=== PATIENT | female | born 1945 | race Caucasian/White ===

== ENCOUNTER 2022-02-22 17:36 | Emergency (ER) | payer MEDICARE, BC, SELFPAY ==
[2022-02-22] VITALS (21 sets, daily range): BP systolic 115–153; BP diastolic 66–95; PULSE 75–113; RESP 20; TEMP 36.3; O2SAT 94–99; BMI 29.1
--- NOTE | 2022-02-22 18:02 | ED_ITS ---
HPI - General Adult General Time Seen by Provider: 18:03 Date Seen: 02/22/22 Chief complaint: Arrhythmia/Palpitations Stated complaint: Afib Time Seen by Provider: 02/22/22 17:54 Source: patient Mode of arrival: ambulatory Limitations: no limitations History of Present Illness HPI narrative: Patient is a pleasant 76-year-old female has chronic atrial fibrillation but it sounds like occasionally she is in sinus rhythm as well, she has had AFib for last couple of days, saw medical advisor yesterday she was switched from atenolol to metoprolol orally. She was given the option for cardioversion with anticoagulation and she declined this. She has been on Eliquis for a good period of time. She tends to get a warm feeling in her chest when she has AFib and she had this today now she feels actually a little better. Her heart rates in the 120 range with frequent PVCs occasionally occasionally alternating normal beat with a PVC. Patient really denies any chest pain nausea vomiting diaphoresis she has been taking good p.o. intake, she saw the medical advisor yesterday as mention. She reports she has been taking her Eliquis regularly Past history history of osteoarthritis right knee, supraventricular tachycardia/AFib, diverticulitis, community-acquired pneumonia. She has also been anticoagulated as mention. Related Data Home Medications Medication Instructions Recorded Confirmed acetaminophen 650 mg 650 mg PO 01/09/22 01/09/22 tablet,extended release albuterol sulfate 2.5 mg/3 mL 2.5 mg inhalation 01/09/22 01/09/22 (0.083 %) solution for nebulization albuterol sulfate 90 mcg/actuation 2 inhalation 01/09/22 01/09/22 aerosol inhaler amlodipine 5 mg tablet 5 mg PO QDAY 01/09/22 01/09/22 apixaban 5 mg tablet 5 mg PO BID 01/09/22 01/09/22 atenolol 50 mg tablet 50 mg PO DAILY 01/09/22 01/09/22 benzonatate 100 mg capsule 100 mg PO 01/09/22 01/09/22 ciprofloxacin HCl 500 mg tablet 500 mg PO 01/09/22 01/09/22 codeine 10 mg-guaifenesin 100 mg/5 5 ml PO 01/09/22 01/09/22 mL oral liquid diltiazem HCl 60 mg mg PO BID 01/09/22 01/09/22 capsule,extended release 12 hr furosemide 40 mg tablet 40 mg PO Q OTHER DAY 01/09/22 01/09/22 levothyroxine 50 mcg capsule 50 mcg PO QDAY 01/09/22 01/09/22 lorazepam 0.5 mg tablet 0.5 mg PO QDAY PRN 01/09/22 01/09/22 losartan 100 mg tablet 100 mg PO DAILY 01/09/22 01/09/22 metronidazole 500 mg tablet 500 mg PO 01/09/22 01/09/22 nitroglycerin 0.4 mg sublingual 0.4 mg sublingual Q5M PRN 01/09/22 01/09/22 tablet omega-3 fatty acids 500 mg capsule 500 mg PO QDAY 01/09/22 01/09/22 rosuvastatin 20 mg tablet 20 mg PO QDAY 01/09/22 01/09/22 sertraline 100 mg tablet 100 mg PO DAILY 01/09/22 01/09/22 valacyclovir 500 mg tablet 500 mg PO BID 01/09/22 01/09/22 Allergies Allergy/AdvReac Type Severity Reaction Status Date / Time penicillin V Allergy Mild Rash Verified 01/11/22 11:17 LOTION AND FRAGRANCES AdvReac Mild Uncoded 01/11/22 11:17 Review of Systems Status of ROS: Reports: 10 or more systems reviewed and unremarkable except as noted in History and below [facility] Medical History Anemia Arthritis Coronary artery disease Gastric ulcer Heart attack Hyperlipidemia Hypertension Hypothyroid Surgical History H/O heart artery stent H/O: hysterectomy History of breast biopsy History of left knee replacement (06/10/13) Status post breast reduction Family History Other High blood pressure Stomach cancer Social History Smoking Status: Former smoker Non-prescribed substance use: denies use Exam Narrative: Exam Narrative: Objective vital signs unremarkable, pulse is 1 13-125 and irregularly regular Alert orient x3 no distress no cyanosis Neck is supple Chest clear Heart irregular regular rhythm a 2/6 systolic murmur Abdomen benign soft obese nontender extremities are no edema neurologic nonfocal good peripheral perfusion noted Skin warm and dry Const: Vital Signs, click to edit/add: Vital Signs - 24 hr 02/22/22 17:42 02/22/22 17:59 02/22/22 18:20 Temperature 97.3 F L Pulse Rate 110 H Pulse Rate [Right Pulse Oximeter] 113 H Respiratory Rate 20 Blood Pressure Blood Pressure [Ri ght Upper Arm] 147/94 H Pulse Oximetry 99 96 96 Oxygen Delivery Me thod Room Air 02/22/22 18:23 02/22/22 18:25 02/22/22 18:27 Temperature Pulse Rate 109 H 112 H 93 Pulse Rate [Right Pulse Oximeter] Respiratory Rate Blood Pressure 151/78 H 153/79 H Blood Pressure [Ri ght Upper Arm] Pulse Oximetry 96 96 96 Oxygen Delivery Me thod 02/22/22 18:30 02/22/22 18:32 02/22/22 18:35 Temperature Pulse Rate 101 H 93 85 Pulse Rate [Right Pulse Oximeter] Respiratory Rate Blood Pressure 115/95 H Blood Pressure [Ri ght Upper Arm] Pulse Oximetry 97 95 96 Oxygen Delivery Me thod 02/22/22 18:41 02/22/22 18:43 02/22/22 18:45 Temperature Pulse Rate 93 75 91 Pulse Rate [Right Pulse Oximeter] Respiratory Rate Blood Pressure 118/66 Blood Pressure [Ri ght Upper Arm] Pulse Oximetry 97 95 97 Oxygen Delivery Me thod 02/22/22 18:49 02/22/22 18:50 02/22/22 18:52 Temperature Pulse Rate 99 92 104 H Pulse Rate [Right Pulse Oximeter] Respiratory Rate Blood Pressure 144/71 H 136/79 Blood Pressure [Ri ght Upper Arm] Pulse Oximetry 97 98 96 Oxygen Delivery Me thod 02/22/22 18:55 02/22/22 18:57 02/22/22 19:00 Temperature Pulse Rate 96 89 108 H Pulse Rate [Right Pulse Oximeter] Respiratory Rate Blood Pressure 137/91 H Blood Pressure [Ri ght Upper Arm] Pulse Oximetry 97 97 96 Oxygen Delivery Me thod 02/22/22 19:02 02/22/22 19:05 02/22/22 19:10 Temperature Pulse Rate 87 98 106 H Pulse Rate [Right Pulse Oximeter] Respiratory Rate Blood Pressure 153/83 H Blood Pressure [Ri ght Upper Arm] Pulse Oximetry 96 96 94 Oxygen Delivery Me thod Course Vital Signs Vital signs: Initial Vital Signs Temperature 97.3 F L 02/22/22 17:42 Temperature Source Temporal Artery Scan 02/22/22 17:42 Pulse Rate 113 H 02/22/22 17:42 Respiratory Rate 20 02/22/22 17:42 Blood Pressure 147/94 H 02/22/22 17:42 Blood Pressure Mean 111 02/22/22 17:42 Blood Pressure Position Sitting 02/22/22 17:42 Pulse Oximetry 99 02/22/22 17:42 Oxygen Delivery Method 02/22/22 17:42 Vital Signs Temperature 97.3 F L 02/22/22 17:42 Pulse Rate 113 H 02/22/22 17:42 Respiratory Rate 20 02/22/22 17:42 Blood Pressure 147/94 H 02/22/22 17:42 Pulse Oximetry 99 02/22/22 17:42 Oxygen Delivery Method 02/22/22 17:42 Temperature 97.3 F L 02/22/22 17:42 Pulse Rate 106 H 02/22/22 19:10 Respiratory Rate 20 02/22/22 17:42 Blood Pressure 153/83 H 02/22/22 19:02 Pulse Oximetry 94 02/22/22 19:10 Oxygen Delivery Method 02/22/22 17:42 Medical Decision Making MDM Narrative Medical decision making narrative: Patient has AFib that sounds like it has been chronic for few days, she intermittently has AFib by her history. She received a switch from atenolol to metoprolol certain there could be some ramping up of her beta-blockade while she gets used to the medication. They could be reasonable to add a low dose of Lopressor IV now and trying slower rate a little bit. Only to make her feel better, check a troponin, laboratory studies, electrolytes, rehydrate with fluid. Disposition pending her clinical status and lab results Addendum: The patient's EKG shows a rate of 127 initially, now on her telemetry reading she is in the 100-110 range. She got 2 doses of Lopressor which seemed to slow her rate. I wonder if there is an some crossover between the atenolol switch to the metoprolol and she is just not adequately beta blocked yet, it seems better at this point. I think given she is anticoagulated she has got rate control on board and she is not significantly symptomatic and she has a negative troponin and reassuring lab studies including a normal white blood cell count, normal hemoglobin potassium was slightly low at 3.1 and she was given replacement. I think we can allow her to go home her proBNP was slightly elevated at 938. Recheck with primary care in 2 days, keep track of her heart rate, she is seems much less symptomatic now and again lower to go home and continue the beta blockade and the anticoagulation. Return as needed Lab Data Labs: Lab Results 02/22/22 02/22/22 02/22/22 Range/Units 18:10 18:10 18:10 WBC 10.62 (4.50-11.00) K/uL RBC 4.26 (4.00-5.20) m/uL Hgb 12.1 (12.0-16.0) gm/dL Hct 37.3 (33.0-51.0) % MCV 88 (80-100) fL MCH 28 (26-34) pg MCHC 32 (32-36) gm/dL RDW Coeff of [place] 13.5 (11.5-15.5) % Plt Count 532 H (140-440) K/uL Neut % (Auto) 64.3 (42.0-72.0) % Lymph % (Auto) 26.2 (20-44) % [place] % (Auto) 6.5 (0.0-11.0) % Eos % (Auto) 2.1 (0.0-7.0) % Baso % (Auto) 0.8 (0.0-3.0) % Neut # (Auto) 6.83 (1.7-7.0) K/uL Lymph # (Auto) 2.78 (0.90-2.90) K/uL Duval # (Auto) 0.70 (0.00-0.90) K/UL Eos # (Auto) 0.22 (0.00-0.50) K/uL Baso # (Auto) 0.09 (0.00-0.30) K/uL Abs Immat Gran (auto) 0.01 (0.00-0.30) K/uL INR 1.16 H (0.91-1.10) Sodium 139 (135-149) mmol/L Potassium 3.1 L (3.6-5.1) mmol/L Chloride 101 (96-114) mmol/L Carbon Dioxide 25 (20-32) mmol/L BUN 12 (7-30) mg/dL Creatinine 0.8 (0.5-1.5) mg/dL Estimated Creat Clear 42.39 Estimated GFR 76 ml/min Glucose 175 H (60-115) mg/dL Calcium 9.4 (8.4-10.6) mg/dL Total Bilirubin (0.1-1.5) mg/dL Direct Bilirubin (0.0-0.5) mg/dL AST (12-35) U/L ALT (4-35) U/L Alkaline Phosphatase (40-150) U/L Troponin I (0.01-0.04) ng/mL NT-Pro-B Natriuret Pep (0-450) PG/mL Total Protein (6.0-8.3) g/dL Albumin (3.3-5.0) g/dL 02/22/22 Range/Units 18:10 WBC (4.50-11.00) K/uL RBC (4.00-5.20) m/uL Hgb (12.0-16.0) gm/dL Hct (33.0-51.0) % MCV (80-100) fL MCH (26-34) pg MCHC (32-36) gm/dL RDW Coeff of [place] (11.5-15.5) % Plt Count (140-440) K/uL Neut % (Auto) (42.0-72.0) % Lymph % (Auto) (20-44) % Duval % (Auto) (0.0-11.0) % Eos % (Auto) (0.0-7.0) % Baso % (Auto) (0.0-3.0) % Neut # (Auto) (1.7-7.0) K/uL Lymph # (Auto) (0.90-2.90) K/uL [place]val # (Auto) (0.00-0.90) K/UL Eos # (Auto) (0.00-0.50) K/uL Baso # (Auto) (0.00-0.30) K/uL Abs Immat Gran (auto) (0.00-0.30) K/uL INR (0.91-1.10) Sodium (135-149) mmol/L Potassium (3.6-5.1) mmol/L Chloride (96-114) mmol/L Carbon Dioxide (20-32) mmol/L BUN (7-30) mg/dL Creatinine (0.5-1.5) mg/dL Estimated Creat Clear Estimated GFR ml/min Glucose (60-115) mg/dL Calcium (8.4-10.6) mg/dL Total Bilirubin 0.3 (0.1-1.5) mg/dL Direct Bilirubin 0.1 (0.0-0.5) mg/dL AST 27 (12-35) U/L ALT 19 (4-35) U/L Alkaline Phosphatase 91 (40-150) U/L Troponin I < 0.01 L (0.01-0.04) ng/mL NT-Pro-B Natriuret Pep 938 H (0-450) PG/mL Total Protein 8.0 (6.0-8.3) g/dL Albumin 4.7 (3.3-5.0) g/dL Discharge Plan Discharge Clinical Impression: Atrial fibrillation with rapid ventricular response Patient Disposition: Home w/ Parent or Adult Condition: Improved Additional Instructions: light activity, fluids, continue home meds, update primary in 1-2 days, return to ed as needed sooner Activity Level: No strenuous activity Discharge Diet: Regular Prescriptions: No Action apixaban 5 mg tablet 5 mg PO BID atenolol 50 mg tablet 50 mg PO DAILY losartan 100 mg tablet 100 mg PO DAILY albuterol sulfate 90 mcg/actuation HFA aerosol inhaler 2 inhalation diltiazem HCl 60 mg capsule,extended release 12 hr PO BID codeine-guaifenesin 10-100 mg/5 mL liquid 5 ml PO benzonatate 100 mg capsule 100 mg PO acetaminophen 650 mg tablet extended release 650 mg PO ciprofloxacin HCl 500 mg tablet 500 mg PO metronidazole 500 mg tablet 500 mg PO sertraline 100 mg tablet 100 mg PO DAILY albuterol sulfate 2.5 mg /3 mL (0.083 %) solution for nebulization 2.5 mg inhalation valacyclovir 500 mg tablet 500 mg PO BID rosuvastatin 20 mg tablet 20 mg PO QDAY omega-3 fatty acids 500 mg capsule 500 mg PO QDAY nitroglycerin 0.4 mg tablet, sublingual 0.4 mg sublingual Q5M PRN Rx Instructions: do not exceed 3 doses per episode lorazepam 0.5 mg tablet 0.5 mg PO QDAY PRN levothyroxine 50 mcg capsule 50 mcg PO QDAY furosemide 40 mg tablet 40 mg PO Q OTHER DAY amlodipine 5 mg tablet 5 mg PO QDAY Follow Up/Referrals: Savana Booker MD [Primary Care Provider] - Stand Alone Forms: [employer] Info Instructions
[2022-02-22 18:17] LABS: Basophils Absolute Auto 0.09 K/uL (0.00-0.30); Basophils Percent Auto 0.8 % (0.0-3.0); Eosinophils Absolute Auto 0.22 K/uL (0.00-0.50); Eosinophils Percent Auto 2.1 % (0.0-7.0); Hematocrit 37.3 % (33.0-51.0); Hemoglobin* 12.1 gm/dL (12.0-16.0); Immature Granulocytes Abs Auto 0.01 K/uL (0.00-0.30); Lymphocytes Absolute Auto 2.78 K/uL (0.90-2.90); Lymphocytes Percent Auto 26.2 % (20-44); Mean Corpuscular HGB Conc 32 gm/dL (32-36); Mean Corpuscular Hemoglobin 28 pg (26-34); Mean Corpuscular Volume 88 fL (80-100); Monocytes Percent Auto 6.5 % (0.0-11.0); Neutrophils Absolute Auto 6.83 K/uL (1.7-7.0); Neutrophils Percent Auto 64.3 % (42.0-72.0); Platelet Count* 532 K/uL (140-440); RDW Coefficient of Variation % 13.5 % (11.5-15.5); Red Blood Count 4.26 m/uL (4.00-5.20); White Blood Count* 10.62 K/uL (4.50-11.00)
[2022-02-22] MEDS: METOPROLOL TARTRATE 1 MG/ML inj 5 MG IVP (18:24)
[2022-02-22] MEDS: 0.9 % SODIUM CHLORIDE 500 ML 500 ML IV (18:24)
[2022-02-22 18:31] LABS: Chloride* 101 mmol/L (96-114); Potassium* 3.1 mmol/L (3.6-5.1); Sodium* 139 mmol/L (135-149)
[2022-02-22 18:32] LABS: Albumin* 4.7 g/dL (3.3-5.0)
[2022-02-22 18:33] LABS: INR 1.16 (0.91-1.10); Prothrombin Time 15.2 Seconds
[2022-02-22 18:34] LABS: Blood Urea Nitrogen* 12 mg/dL (7-30); Calcium* 9.4 mg/dL (8.4-10.6); Carbon Dioxide* 25 mmol/L (20-32); Creatinine* 0.8 mg/dL (0.5-1.5); Est. Creatinine Clearance* 42.39; Estimated Glomerular Filt Rate 76 ml/min; Glucose* 175 mg/dL (60-115); Slide Review Reflex No
[2022-02-22 18:35] LABS: Alanine Aminotransferase* 19 U/L (4-35); Alkaline Phosphatase* 91 U/L (40-150); Aspartate Amino Transferase* 27 U/L (12-35); Bilirubin Direct* 0.1 mg/dL (0.0-0.5); Bilirubin Total* 0.3 mg/dL (0.1-1.5)
[2022-02-22 18:43] LABS: NT Pro B Type NatriureticPept* 938 PG/mL (0-450)
[2022-02-22] MEDS: METOPROLOL TARTRATE 1 MG/ML inj 2.5 MG IVP (18:45)
[2022-02-22 18:47] LABS: Troponin I* < 0.01 ng/mL (0.01-0.04)
== END 2022-02-22 19:28 | disposition home or self-care (01) ==
LOC: ED 18:50
PROVIDERS: Emergency Provider Family Medicine; PCP Family Medicine
DX: I48.20 Chronic atrial fibrillation, unspecified (principal)
CPT/HCPCS: 36415; 80048; 80076; 83880; 84484; 85025; 85610; 93005; 94761; 99284; 99285; J7120

== ENCOUNTER 2022-09-14 11:23 | Emergency (ER) | payer MEDICARE, BC, SELFPAY ==
[2022-09-14 11:29] VITALS: BP 172/84; PULSE 86; RESP 20; TEMP 36.2; O2SAT 99; BMI 29.1
--- NOTE | 2022-09-14 11:42 | ED.BACK ---
HPI - Back Pain/Injury General Time Seen by Provider: 11:42 Date Seen: 09/14/22 Chief Complaint: Back Injury/Pain Stated Complaint: Back pain Time Seen by Provider: 09/14/22 11:42 Source: patient, RN notes reviewed and old records reviewed Mode of arrival: ambulatory Limitations: no limitations History of Present Illness HPI Narrative: Veena is a very pleasant 77-year-old female with a history of PA 20 years ago, atrial fibrillation currently on Eliquis who comes to the emergency room for evaluation regarding possible diverticulitis. Patient states that for 1 week she has had a pain in her right low back. She states that she and her had been on vacation in the [facility]. She notes that her low back was hurting and she thought it was from flying. She states the morning discomfort is definitely worse and sometimes there is a gripping sensation. She notes that Tylenol did seem to help the pain but would not completely resolve it. Over the past week however the pain has persisted and is rather dull in nature and she has had decrease of energy. She notes that this is completely consistent with diverticulitis that she experienced few years ago. It is also in the same spot. She has is feeling that she cannot completely empty her bowels but denies any diarrhea or blood in her stool. She does occasionally have radiation into her leg but she thought this was most likely pain radiating from her knee. She has not had any bowel or bladder control issues. She has not had fever and chills and she has been able to eat. Related Data Home Medications Medication Instructions Recorded Confirmed acetaminophen 650 mg 650 mg PO Q12H PRN 01/09/22 09/14/22 tablet,extended release albuterol sulfate 2.5 mg/3 mL 2.5 mg inhalation Q4H PRN 01/09/22 09/14/22 (0.083 %) solution for nebulization albuterol sulfate 90 mcg/actuation 2 inhalation Q4H PRN 01/09/22 06/19/22 aerosol inhaler amlodipine 5 mg tablet 5 mg PO QDAY 01/09/22 09/14/22 apixaban 5 mg tablet 5 mg PO BID 01/09/22 09/14/22 benzonatate 100 mg capsule 100 mg PO 01/09/22 06/19/22 ciprofloxacin HCl 500 mg tablet 500 mg PO 01/09/22 06/19/22 codeine 10 mg-guaifenesin 100 mg/5 5 ml PO 01/09/22 06/19/22 mL oral liquid furosemide 40 mg tablet 40 mg PO Q OTHER DAY 01/09/22 09/14/22 levothyroxine 50 mcg capsule 50 mcg PO QDAY 01/09/22 09/14/22 lorazepam 0.5 mg tablet 0.5 mg PO QDAY PRN 01/09/22 09/14/22 losartan 100 mg tablet 100 mg PO DAILY 01/09/22 09/14/22 metronidazole 500 mg tablet 500 mg PO 01/09/22 06/19/22 nitroglycerin 0.4 mg sublingual 0.4 mg sublingual Q5M PRN 01/09/22 09/14/22 tablet omega-3 fatty acids 500 mg capsule 500 mg PO QDAY 01/09/22 09/14/22 rosuvastatin 20 mg tablet 20 mg PO QDAY 01/09/22 09/14/22 sertraline 100 mg tablet 100 mg PO DAILY 01/09/22 09/14/22 valacyclovir 500 mg tablet 500 mg PO BID 01/09/22 06/19/22 metoprolol succinate 100 mg 100 mg PO BID 06/19/22 09/14/22 tablet,extended release 24 hr Previous Rx's Medication Instructions Recorded ciprofloxacin HCl 500 mg tablet 500 mg PO BID #14 tabs 09/14/22 (Cipro) metronidazole 500 mg tablet 500 mg PO TID #20 tabs 09/14/22 Allergies Allergy/AdvReac Type Severity Reaction Status Date / Time penicillin V Allergy Mild Rash Verified 06/19/22 15:31 LOTION AND FRAGRANCES AdvReac Mild Uncoded 06/19/22 15:31 Review of Systems Status of ROS: Reports: 10 or more systems reviewed and unremarkable except as noted in History and below Const: Reports: fatigue; Denies: fever or chills Eyes: Denies: change in vision ENMT: Denies: throat pain, neck pain or throat swelling Cardio: Denies: chest pain, palpitations, swelling of feet/ankles, lightheadedness or shortness of breath with exertion Resp: Denies: shortness of breath or cough GI: Denies: abdominal pain, nausea or vomiting : Denies: painful urination or urinary frequency Musculo: Reports: back pain and extremity pain (Right knee); Denies: neck pain Integ/Breast: Denies: rash Neuro: Denies: headache, numbness in extremities or weakness in extremities Endo: Reports: fatigue Allergy/Immuno: Denies: throat swelling PFSH PFSH Medical History Anemia ?D64.9 - Anemia, unspecified (ICD-10) Arthritis ?M19.90 - Unspecified osteoarthritis, unspecified site (ICD-10) Gastric ulcer ?K25.9 - Gastric ulcer, unspecified as acute or chronic, without hemorrhage or perforation (ICD-10) Hyperlipidemia ?E78.5 - Hyperlipidemia, unspecified (ICD-10) Hypertension ?I10 - Essential (primary) hypertension (ICD-10) Heart attack ?I21.9 - Acute myocardial infarction, unspecified (ICD-10) Coronary artery disease ?I25.10 - Atherosclerotic heart disease of [place] coronary artery without angina pectoris (ICD-10) Hypothyroid ?E03.9 - Hypothyroidism, unspecified (ICD-10) Surgical History H/O heart artery stent ?Z95.5 - Presence of coronary angioplasty implant and graft (ICD-10) Status post breast reduction ?Z98.890 - Other specified postprocedural states (ICD-10) History of left knee replacement (06/10/13) ?Z96.652 - Presence of left artificial knee joint (ICD-10) History of breast biopsy ?Z98.890 - Other specified postprocedural states (ICD-10) H/O: hysterectomy ?Z90.710 - Acquired absence of both cervix and uterus (ICD-10) Family History Other High blood pressure Stomach cancer Social History Smoking Status: Former smoker What tobacco products do you use: cigarettes Smoking quit date/years: >15 years ago Do you use any of these nicotine containing products: None Second hand tobacco smoke exposure: No How often do you have a drink containing alcohol: never AUDIT-C Alcohol total score: 0 Non-prescribed substance use: denies use Exam Narrative: Exam Narrative: Patient is alert and oriented. No acute distress. External ears eyes nose clear. Heart with a irregularly irregular rhythm but normal rate. Lungs are clear bilaterally. Abdomen is soft nontender. Lower extremities with scant peripheral edema. Straight leg raise does not changed patient's pain. No pain with palpation down thoracic or lumbar spine. There is pain noted in the posterior flank soft tissue. No skin changes are noted. She is moving all her extremities. Const: Vital Signs, click to edit/add: Vital Signs - 24 hr 09/14/22 11:29 Temperature 97.2 F L Pulse Rate [Pulse Oximeter] 86 Respiratory Rate 20 Blood Pressure [Ri ght Upper Arm] 172/84 H Pulse Oximetry 99 Oxygen Delivery Me thod Room Air Documenting provider has reviewed patient's vital signs: yes Course Course Hospital Course: Given patient's recent travel as well as symptoms that were consistent with diverticulitis in the past I do think we should do a CT. Will also check laboratory values including CBC, comprehensive panel, CRP and urinalysis. Did differential diagnosis includes but is not limited to diverticulitis, colitis, musculoskeletal pain, radiculitis, UTI, ureteral colic, shingles. Reevaluation(s) Reevaluation #1: Patient declines any pain medications at this time Vital Signs Vital signs: Initial Vital Signs Temperature 97.2 F L 09/14/22 11:29 Temperature Source Temporal Artery Scan 09/14/22 11:29 Pulse Rate 86 09/14/22 11:29 Respiratory Rate 20 09/14/22 11:29 Blood Pressure 172/84 H 09/14/22 11:29 Blood Pressure Mean 113 H 09/14/22 11:29 Blood Pressure Position Sitting 09/14/22 11:29 Pulse Oximetry 99 09/14/22 11:29 Oxygen Delivery Method Room Air 09/14/22 11:29 Vital Signs Temperature 97.2 F L 09/14/22 11:29 Pulse Rate 86 09/14/22 11:29 Respiratory Rate 20 09/14/22 11:29 Blood Pressure 172/84 H 09/14/22 11:29 Pulse Oximetry 99 09/14/22 11:29 Oxygen Delivery Method Room Air 09/14/22 11:29 Temperature 97.2 F L 09/14/22 11:29 Pulse Rate 86 09/14/22 11:29 Respiratory Rate 20 09/14/22 11:29 Blood Pressure 172/84 H 09/14/22 11:29 Pulse Oximetry 99 09/14/22 11:29 Oxygen Delivery Method Room Air 09/14/22 11:29 MDM - Back Pain/Injury MDM Narrative Medical decision making narrative: 1. Diverticulitis-at this time patient has symptoms consistent with a previous diverticulitis. However, her CT shows possibility of colitis and does recommend follow-up for evaluation because of the bowel wall thickening. Given the fact that she has just returned from the [facility] as well as previous diverticulitis I will be treating her for divert diverticulitis with Flagyl 500 mg p.o. t.i.d. x7 days and Cipro 500 mg p.o. b.i.d. x7 days. Patient does realize that this is not entirely a clear picture based on CT. She states that she had a colonoscopy 2 years ago and there were no problems with that. She does understand that she will need to follow up with her primary MD and be set up for colonoscopy for further visualization of this area. 2. Disposition-home at this time. Return for vomiting, increasing pain, fever and onset of new symptoms. Medical Records Attestation: I reviewed the patient's medical records. Lab Data Attestation: I reviewed the patient's lab results. Labs: Lab Results 09/14/22 Range/Units 12:10 WBC 8.65 (4.50-11.00) K/uL RBC 4.42 (4.00-5.20) m/uL Hgb 10.4 L (12.0-16.0) gm/dL Hct 34.9 (33.0-51.0) % MCV 79 L (80-100) fL MCH 24 L (26-34) pg MCHC 30 L (32-36) gm/dL RDW Coeff of [place] 16.0 H (11.5-15.5) % Plt Count 533 H (140-440) K/uL Neut % (Auto) 73.0 H (42.0-72.0) % Lymph % (Auto) 16.9 L (20-44) % [place] % (Auto) 6.6 (0.0-11.0) % Eos % (Auto) 2.5 (0.0-7.0) % Baso % (Auto) 0.9 (0.0-3.0) % Neut # (Auto) 6.30 (1.7-7.0) K/uL Lymph # (Auto) 1.50 (0.90-2.90) K/uL [place] # (Auto) 0.60 (0.00-0.90) K/UL Eos # (Auto) 0.22 (0.00-0.50) K/uL Baso # (Auto) 0.08 (0.00-0.30) K/uL Sodium 138 (135-149) mmol/L Potassium 3.9 (3.6-5.1) mmol/L Chloride 101 (96-114) mmol/L Carbon Dioxide 26 (20-32) mmol/L BUN 12 (7-30) mg/dL Creatinine 0.7 (0.5-1.5) mg/dL Estimated Creat Clear 41.72 Estimated GFR 88 ml/min Glucose 138 H (60-115) mg/dL Calcium 9.2 (8.4-10.6) mg/dL Total Bilirubin 0.4 (0.1-1.5) mg/dL AST 22 (12-35) U/L ALT 18 (4-35) U/L Alkaline Phosphatase 69 (40-150) U/L C-Reactive Protein 0.7 (0.5-1.0) mg/dL Total Protein 8.2 (6.0-8.3) g/dL Albumin 4.8 (3.3-5.0) g/dL Urine Color Yellow (Yellow) Urine Appearance Clear (Clear) Urine pH 5.0 (5.0-8.5) Ur Specific [place] 1.010 (1.000-1.030) Urine Protein Negative (Negative) Urine Glucose (UA) Negative (Negative) Urine Ketones Negative (Negative) Urine Blood Trace-intact A (Negative) Urine Nitrite Negative (Negative) Urine Bilirubin Negative (Negative) Urine Urobilinogen 0.2 (0.2-1.0) Ur Leukocyte Esterase Negative (Negative) Urine RBC 2-5 A (0-2) Urine WBC 0-2 (0-5) Ur Squamous Epith Cells None (None-Few) Urine Bacteria None (None) Imaging Data CT scan - abdomen: Attestation: I have reviewed the pertinent imaging results. Discharge Plan Discharge Clinical Impression: Back ache, Diverticulitis Patient Disposition: Home, Self-Care Condition: Stable Additional Instructions: You will be taking 2 antibiotics for what I assume is diverticulitis. Flagyl will be 500 mg every 8 hours which equals 3 times a day. Cipro will be 500 mg twice a day or every 12 hours. Would like you to push fluids. Tylenol may be used for discomfort. We will give you the report of the CT. Because this does not appear to be classic case of diverticulitis you will need to have colonoscopy to ensure resolution of the thickening of the colon wall once you are feeling better. Please take a copy of this to your doctor so that you could be set up for a colonoscopy. Return to the emergency room for vomiting, fever, worsening symptoms and as needed. Prescriptions: New ciprofloxacin HCl [Cipro] 500 mg tablet 500 mg PO BID Qty: 14 0RF metronidazole 500 mg tablet 500 mg PO TID Qty: 20 0RF No Action apixaban 5 mg tablet 5 mg PO BID losartan 100 mg tablet 100 mg PO DAILY albuterol sulfate 90 mcg/actuation HFA aerosol inhaler 2 inhalation Q4H PRN codeine-guaifenesin 10-100 mg/5 mL liquid 5 ml PO benzonatate 100 mg capsule 100 mg PO acetaminophen 650 mg tablet extended release 650 mg PO Q12H PRN ciprofloxacin HCl 500 mg tablet 500 mg PO metronidazole 500 mg tablet 500 mg PO sertraline 100 mg tablet 100 mg PO DAILY albuterol sulfate 2.5 mg /3 mL (0.083 %) solution for nebulization 2.5 mg inhalation Q4H PRN valacyclovir 500 mg tablet 500 mg PO BID rosuvastatin 20 mg tablet 20 mg PO QDAY omega-3 fatty acids 500 mg capsule 500 mg PO QDAY nitroglycerin 0.4 mg tablet, sublingual 0.4 mg sublingual Q5M PRN Rx Instructions: do not exceed 3 doses per episode lorazepam 0.5 mg tablet 0.5 mg PO QDAY PRN levothyroxine 50 mcg capsule 50 mcg PO QDAY furosemide 40 mg tablet 40 mg PO Q OTHER DAY amlodipine 5 mg tablet 5 mg PO QDAY metoprolol succinate 100 mg tablet extended release 24 hr 100 mg PO BID Follow Up/Referrals: Savana Booker MD [Primary Care Provider] - Stand Alone Forms: [employer] Info Instructions
--- NOTE | 2022-09-14 11:52 | CRLHL7_ITS ---
For Patients: As a result of the Century Cures Act, medical imaging exams and procedure reports are released immediately into your electronic medical record. You may view this report before your referring provider. If you have questions, please contact your health care provider. INDICATION: Right flank pain, rule out diverticulitis. TECHNIQUE: CT of the abdomen and pelvis without intravenous contrast. Coronal and sagittal reconstructions. COMPARISON: CT of the abdomen and pelvis 10/07/2014. FINDINGS: The unenhanced liver, spleen, pancreas, and adrenal glands are normal in appearance. Small splenule. Tiny stone in the gallbladder neck without evidence of gallbladder inflammation. No biliary dilation. No hydronephrosis or ureteral dilation. No obstructing urinary calculi identified. Subcentimeter fat density lesion in the posterior left kidney likely represents an angiomyolipoma (series 2, image 45). The bladder is normal in appearance. Hysterectomy. No adnexal mass. Small hiatal hernia. No small bowel dilation. Extensive sigmoid diverticulosis without evidence of diverticulitis. There appears to be wall thickening of the ascending colon with subtle pericolonic fat stranding, however evaluation is limited by underdistention and lack of IV contrast. Negative appendix. No intraperitoneal free air or fluid. No lymphadenopathy. Aortoiliac vascular calcifications. The bones are unremarkable. There is an 8 mm noncalcified pulmonary nodule in the medial right lower lobe which is above the field of view of prior exam (series 3, image 1). The lung bases are otherwise clear. IMPRESSION: 1. Wall thickening of the ascending colon with subtle pericolonic fat stranding. Findings may represent a nonspecific colitis, however further evaluation with colonoscopy is recommended to exclude underlying mass. 2. Colonic diverticulosis without evidence of diverticulitis. 3. 8 mm noncalcified pulmonary nodule in the right lower lobe. Follow-up per Fleischner society guidelines. Please note that all CT scans at this facility use dose modulation, iterative reconstruction, and/or weight-based dosing when appropriate to reduce radiation dose to as low as reasonably achievable. Dictated by Joseline Madden MD @ 09/14/2022 1:06:11 PM (Electronically Signed)
[2022-09-14 12:38] LABS: Appearance Urine Clear (Clear); Bilirubin Urine Negative (Negative); Blood Urine Trace-intact (Negative); Color Urine Yellow (Yellow); Glucose Urine Negative (Negative); Ketones Urine Negative (Negative); Leukocyte Esterase Urine Negative (Negative); Nitrite Urine Negative (Negative); Protein Urine Negative (Negative); Urobilinogen Urine 0.2 (0.2-1.0)
[2022-09-14 12:41] LABS: Basophils Absolute Auto 0.08 K/uL (0.00-0.30); Basophils Percent Auto 0.9 % (0.0-3.0); Eosinophils Absolute Auto 0.22 K/uL (0.00-0.50); Eosinophils Percent Auto 2.5 % (0.0-7.0); Hematocrit 34.9 % (33.0-51.0); Hemoglobin* 10.4 gm/dL (12.0-16.0); Immature Granulocytes Abs Auto 0.01 K/uL (0.00-0.30); Immature Granulocytes Pct Auto 0.1 %; Lymphocytes Percent Auto 16.9 % (20-44); Mean Corpuscular HGB Conc 30 gm/dL (32-36); Mean Corpuscular Hemoglobin 24 pg (26-34); Mean Corpuscular Volume 79 fL (80-100); Monocytes Percent Auto 6.6 % (0.0-11.0); Platelet Count* 533 K/uL (140-440); Red Blood Count 4.42 m/uL (4.00-5.20); White Blood Count* 8.65 K/uL (4.50-11.00)
[2022-09-14 12:47] LABS: Slide Review Reflex No
[2022-09-14 12:55] LABS: Albumin* 4.8 g/dL (3.3-5.0); Chloride* 101 mmol/L (96-114)
[2022-09-14 12:56] LABS: Potassium* 3.9 mmol/L (3.6-5.1); Sodium* 138 mmol/L (135-149)
[2022-09-14 12:58] LABS: Alanine Aminotransferase* 18 U/L (4-35); Alkaline Phosphatase* 69 U/L (40-150); Aspartate Amino Transferase* 22 U/L (12-35); Bilirubin Total* 0.4 mg/dL (0.1-1.5); Blood Urea Nitrogen* 12 mg/dL (7-30); Carbon Dioxide* 26 mmol/L (20-32); Creatinine* 0.7 mg/dL (0.5-1.5); Est. Creatinine Clearance* 41.72; Estimated Glomerular Filt Rate 88 ml/min; Total Protein* 8.2 g/dL (6.0-8.3)
[2022-09-14 12:59] LABS: Calcium* 9.2 mg/dL (8.4-10.6); Glucose* 138 mg/dL (60-115)
[2022-09-14 13:01] LABS: C Reactive Protein* 0.7 mg/dL (0.5-1.0)
[2022-09-14 13:12] LABS: WBC Urine 0-2 (0-5)
== END 2022-09-14 13:43 | disposition home or self-care (01) ==
PROVIDERS: Emergency Provider Family Medicine; PCP Family Medicine
DX: M54.9 Dorsalgia, unspecified (principal); K57.92 Diverticulitis of intestine, part unspecified, without perforation or abscess without bleeding
CPT/HCPCS: 36415; 74176; 80053; 81001; 85025; 86140; 99284

== ENCOUNTER 2022-10-18 13:45 | Outpatient (RCR) | payer MEDICARE, BC, SELFPAY | END 2022-12-18 14:45 | disposition home or self-care (01) | PROVIDERS: PCP Family Medicine; Visit Provider Orthopaedic Surgery | DX: M54.9 Dorsalgia, unspecified (principal); Z51.89 Encounter for other specified aftercare | CPT/HCPCS: 97110; 97140; 97161 ==

== ENCOUNTER 2023-06-23 17:20 | Emergency (ER) | payer MEDICARE, BC, SELFPAY ==
[2023-06-23] VITALS (15 sets, daily range): BP systolic 160–190; BP diastolic 83–96; PULSE 64–88; RESP 20; TEMP 36.6; O2SAT 94–98; BMI 29.5
--- NOTE | 2023-06-23 17:52 | ED_ITS ---
HPI - General Adult General Chief complaint: Arrhythmia/Palpitations Stated complaint: irregular heartbeat Time Seen by Provider: 06/23/23 17:44 History of Present Illness HPI narrative: Patient reports feeling heart palpitation on and off over past couple of days though yesterday, no symptoms. Did have cardioversion back in March with no a-fib since then. Denies chest pain, nausea, does endorse episoded of clammy coldness 77-year-old woman presenting to the emergency department with concern of returned atrial fibrillation. Did have cardioversion 2-3 months ago and has been feeling quite good since that time. Over the last couple of days has been feeling on and off as if heart was beating hard but not necessarily fast including earlier today before arrival. No chest pain or shortness of breath or nausea. No fever. No lightheadedness. More remotely does report a history of myocardial infarction and single-vessel stenting. Anticoagulated with Eliquis. Does take metoprolol and has not missed doses. Metoprolol for rate/rhythm control. Related Data Home Medications Medication Instructions Recorded Confirmed albuterol sulfate 2.5 mg/3 mL 2.5 mg inhalation Q4H PRN 01/09/22 05/28/23 (0.083 %) solution for nebulization albuterol sulfate 90 mcg/actuation 2 inhalation Q4H PRN 01/09/22 05/28/23 aerosol inhaler amlodipine 5 mg tablet 5 mg PO QDAY 01/09/22 05/28/23 apixaban 5 mg tablet 5 mg PO BID 01/09/22 05/28/23 benzonatate 100 mg capsule 100 mg PO 01/09/22 05/28/23 ciprofloxacin HCl 500 mg tablet 500 mg PO 01/09/22 05/28/23 codeine 10 mg-guaifenesin 100 mg/5 5 ml PO 01/09/22 05/28/23 mL oral liquid furosemide 40 mg tablet 40 mg PO Q OTHER DAY 01/09/22 05/28/23 levothyroxine 50 mcg capsule 50 mcg PO QDAY 01/09/22 05/28/23 lorazepam 0.5 mg tablet 0.5 mg PO QDAY PRN 01/09/22 05/28/23 losartan 100 mg tablet 100 mg PO DAILY 01/09/22 05/28/23 metronidazole 500 mg tablet 500 mg PO 01/09/22 05/28/23 nitroglycerin 0.4 mg sublingual 0.4 mg sublingual Q5M PRN 01/09/22 05/28/23 tablet omega-3 fatty acids 500 mg capsule 500 mg PO QDAY 01/09/22 05/28/23 rosuvastatin 20 mg tablet 20 mg PO QDAY 01/09/22 05/28/23 sertraline 100 mg tablet 100 mg PO DAILY 01/09/22 05/28/23 valacyclovir 500 mg tablet 500 mg PO BID 01/09/22 05/28/23 acetaminophen 500 mg tablet 1,000 mg PO Q6H PRN 09/25/22 05/28/23 (Tylenol Extra Strength) metoprolol succinate 100 mg 25 mg PO BID 03/07/23 05/28/23 tablet,extended release 24 hr Allergies Allergy/AdvReac Type Severity Reaction Status Date / Time penicillin V Allergy Mild Rash Verified 05/28/23 13:31 LOTION AND FRAGRANCES AdvReac Mild Uncoded 05/28/23 13:31 Review of Systems Status of ROS: Reports: 6 or more systems reviewed and unremarkable except as noted in History and below [facility] Medical History Anemia ?D64.9 - Anemia, unspecified (ICD-10) Arthritis ?M19.90 - Unspecified osteoarthritis, unspecified site (ICD-10) Gastric ulcer ?K25.9 - Gastric ulcer, unspecified as acute or chronic, without hemorrhage or perforation (ICD-10) Hyperlipidemia ?E78.5 - Hyperlipidemia, unspecified (ICD-10) Hypertension ?I10 - Essential (primary) hypertension (ICD-10) Heart attack ?I21.9 - Acute myocardial infarction, unspecified (ICD-10) Coronary artery disease ?I25.10 - Atherosclerotic heart disease of [place] coronary artery without angina pectoris (ICD-10) Hypothyroid ?E03.9 - Hypothyroidism, unspecified (ICD-10) Surgical History H/O heart artery stent ?Z95.5 - Presence of coronary angioplasty implant and graft (ICD-10) Status post breast reduction ?Z98.890 - Other specified postprocedural states (ICD-10) History of left knee replacement (06/10/13) ?Z96.652 - Presence of left artificial knee joint (ICD-10) History of breast biopsy ?Z98.890 - Other specified postprocedural states (ICD-10) H/O: hysterectomy ?Z90.710 - Acquired absence of both cervix and uterus (ICD-10) Family History Other High blood pressure Stomach cancer Social History Narrative: -Johnnie Smoking Status: Former smoker What tobacco products do you use: cigarettes Smoking quit date/years: >15 years ago Do you use any of these nicotine containing products: None Second hand tobacco smoke exposure: No How often do you have a drink containing alcohol: never AUDIT-C Alcohol total score: 0 Non-prescribed substance use: denies use Exam Narrative: Exam Narrative: Very pleasant. NAD. Breathing easily. Easily conversant. Cranial nerves 2-12 intact. She is moving all extremities without difficulty. Bilateral lower extremity dependent/weight related edema. Nonpitting. Skin is warm and dry. Well-perfused peripherally. lungs are clear. Heart is in a regular rate and rhythm I think with some ectopic beats. Abdomen is soft. Const: Vital Signs, click to edit/add: Vital Signs - 24 hr 06/23/23 17:27 06/23/23 17:33 06/23/23 17:35 Temperature 97.9 F Pulse Rate 82 Pulse Rate [Pulse Oximeter] 88 Respiratory Rate 20 Blood Pressure Blood Pressure [Ri ght Upper Arm] 190/94 H Pulse Oximetry 95 98 97 Oxygen Delivery Me thod Room Air 06/23/23 17:45 06/23/23 18:00 06/23/23 18:02 Temperature Pulse Rate 83 74 81 Pulse Rate [Pulse Oximeter] Respiratory Rate Blood Pressure 174/93 H Blood Pressure [Ri ght Upper Arm] Pulse Oximetry 95 98 97 Oxygen Delivery Me thod 06/23/23 18:15 06/23/23 18:36 06/23/23 18:37 Temperature Pulse Rate 77 69 66 Pulse Rate [Pulse Oximeter] Respiratory Rate Blood Pressure 179/94 H Blood Pressure [Ri ght Upper Arm] Pulse Oximetry 96 96 97 Oxygen Delivery Me thod 06/23/23 18:45 06/23/23 19:00 06/23/23 19:02 Temperature Pulse Rate 65 75 64 Pulse Rate [Pulse Oximeter] Respiratory Rate Blood Pressure 160/83 H Blood Pressure [Ri ght Upper Arm] Pulse Oximetry 96 96 94 Oxygen Delivery Me thod 06/23/23 19:15 06/23/23 19:30 06/23/23 19:32 Temperature Pulse Rate 79 67 65 Pulse Rate [Pulse Oximeter] Respiratory Rate Blood Pressure 167/96 H Blood Pressure [Ri ght Upper Arm] Pulse Oximetry 95 95 95 [facility] provider has reviewed patient's vital signs: yes Course Vital Signs Vital signs: Initial Vital Signs Pulse Oximetry 95 06/23/23 17:27 Vital Signs Pulse Oximetry 95 06/23/23 17:27 Temperature 97.9 F 06/23/23 17:33 Pulse Rate 65 06/23/23 19:32 Respiratory Rate 20 06/23/23 17:33 Blood Pressure 167/96 H 06/23/23 19:32 Pulse Oximetry 95 06/23/23 19:32 Oxygen Delivery Method Room Air 06/23/23 17:33 Medications Administered Medications: Discontinued Medications Generic Name Dose Route Start Last Admin Trade Name Freq PRN Reason Stop Dose Admin Sodium Chloride 1,000 mls @ 1,000 mls/hr 06/23/23 18:01 06/23/23 19:20 0.9 % Sodium Chloride 1000 Ml IV 06/23/23 19:00 Infused .Q1H ONE Infusion Medical Decision Making MDM Narrative Medical decision making narrative: During exam on monitor is clearly producing PVCs which apparently are asymptomatic. I think it would be worth monitored here for a time to see whether not she might be going back into atrial fibrillation or demonstrates other arrhythmia/dysrhythmia. Will give IV hydration and check electrolytes. Look for anemia Labs are reassuring. White count mildly elevated 11.4 Over time in the emergency department sensation fades. EKG does show some PACs. Continuing to have asymptomatic singular PVCs. No evidence of atrial fibrillation or aflutter otherwise. No evidence of recent ischemic event. See patient discharge plan Medical Records Medical records reviewed: Yes I reviewed the patient's medical records Lab Data Lab results reviewed: Yes I reviewed the patient's lab results Labs: Lab Results 06/23/23 Range/Units 18:00 WBC 11.42 H (4.50-11.00) K/uL RBC 4.45 (4.00-5.20) m/uL Hgb 13.9 (12.0-16.0) gm/dL Hct 41.3 (33.0-51.0) % MCV 93 (80-100) fL MCH 31 (26-34) pg MCHC 34 (32-36) gm/dL RDW Coeff of [place] 12.3 (11.5-15.5) % Plt Count 470 H (140-440) K/uL Neut % (Auto) 78.5 H (42.0-72.0) % Lymph % (Auto) 14.8 L (20-44) % [place] % (Auto) 5.2 (0.0-11.0) % Eos % (Auto) 0.9 (0.0-7.0) % Baso % (Auto) 0.4 (0.0-3.0) % Neut # (Auto) 9.00 H (1.7-7.0) K/uL Lymph # (Auto) 1.70 (0.90-2.90) K/uL [place] # (Auto) 0.60 (0.00-0.90) K/UL Eos # (Auto) 0.10 (0.00-0.50) K/uL Baso # (Auto) 0.00 (0.00-0.30) K/uL Abs Immat Gran (auto) 0.00 (0.00-0.30) K/uL Imm/Tot Granulo (auto) 0.2 % Sodium 139 (135-149) mmol/L Potassium 3.8 (3.6-5.1) mmol/L Chloride 102 (96-114) mmol/L Carbon Dioxide 24 (20-32) mmol/L Anion Gap 13 (7-15) mEq/L BUN 12 (7-30) mg/dL Creatinine 0.7 (0.5-1.5) mg/dL Estimated Creat Clear 41.72 Estimated GFR 88 ml/min Glucose 135 H (60-115) mg/dL Calcium 9.6 (8.4-10.6) mg/dL Magnesium 2.2 (1.5-2.6) mg/dL Troponin I < 0.01 L (0.01-0.04) ng/mL C-Reactive Protein 1.0 (0.5-1.0) mg/dL NT-Pro-B Natriuret Pep 186 pg/mL TSH 0.721 (0.270-4.20) uIU/mL ECG Data Attestation: I personally reviewed and interpreted this ECG as follows: (Sinus rhythm. There are PACs and PVCs. Rate of 81. QRS complex for every P-wave.) Discharge Plan Discharge Clinical Impression: Frequent unifocal PVCs, PAC (premature atrial contraction) Patient Disposition: Home w/ Parent or Adult Condition: Improved Additional Instructions: Stay well-hydrated. Rest tomorrow. Take medications including metoprolol as prescribed. Be seen/return if feeling more lightheaded, more worsening and persistent palpitations, persistent chest pain. Activity Level: No Restrictions Discharge Diet: Regular Prescriptions: No Action apixaban 5 mg tablet 5 mg PO BID losartan 100 mg tablet 100 mg PO DAILY albuterol sulfate 90 mcg/actuation HFA aerosol inhaler 2 inhalation Q4H PRN codeine-guaifenesin 10-100 mg/5 mL liquid 5 ml PO benzonatate 100 mg capsule 100 mg PO ciprofloxacin HCl 500 mg tablet 500 mg PO metronidazole 500 mg tablet 500 mg PO sertraline 100 mg tablet 100 mg PO DAILY albuterol sulfate 2.5 mg /3 mL (0.083 %) solution for nebulization 2.5 mg inhalation Q4H PRN valacyclovir 500 mg tablet 500 mg PO BID rosuvastatin 20 mg tablet 20 mg PO QDAY omega-3 fatty acids 500 mg capsule 500 mg PO QDAY nitroglycerin 0.4 mg tablet, sublingual 0.4 mg sublingual Q5M PRN Rx Instructions: do not exceed 3 doses per episode lorazepam 0.5 mg tablet 0.5 mg PO QDAY PRN levothyroxine 50 mcg capsule 50 mcg PO QDAY furosemide 40 mg tablet 40 mg PO Q OTHER DAY amlodipine 5 mg tablet 5 mg PO QDAY metoprolol succinate 100 mg tablet extended release 24 hr 25 mg PO BID acetaminophen [Tylenol Extra Strength] 500 mg tablet 1,000 mg PO Q6H PRN Follow Up/Referrals: Savana Booker MD [Primary Care Provider] - Stand Alone Forms: [employer] Info Instructions
[2023-06-23] MEDS: 0.9 % SODIUM CHLORIDE 1000 ml 1,000 ML IV (18:00)
[2023-06-23 18:10] LABS: Basophils Percent Auto 0.4 % (0.0-3.0); Eosinophils Percent Auto 0.9 % (0.0-7.0); Hematocrit 41.3 % (33.0-51.0); Hemoglobin* 13.9 gm/dL (12.0-16.0); Immature Granulocytes Pct Auto 0.2 %; Lymphocytes Percent Auto 14.8 % (20-44); Mean Corpuscular HGB Conc 34 gm/dL (32-36); Mean Corpuscular Hemoglobin 31 pg (26-34); Mean Corpuscular Volume 93 fL (80-100); Monocytes Percent Auto 5.2 % (0.0-11.0); Neutrophils Percent Auto 78.5 % (42.0-72.0); Platelet Count* 470 K/uL (140-440); RDW Coefficient of Variation % 12.3 % (11.5-15.5); Red Blood Count 4.45 m/uL (4.00-5.20); White Blood Count* 11.42 K/uL (4.50-11.00)
[2023-06-23 18:13] LABS: Slide Review Reflex No
[2023-06-23 18:23] LABS: Chloride* 102 mmol/L (96-114); Potassium* 3.8 mmol/L (3.6-5.1); Sodium* 139 mmol/L (135-149)
[2023-06-23 18:26] LABS: Creatinine* 0.7 mg/dL (0.5-1.5); Est. Creatinine Clearance* 41.72; Estimated Glomerular Filt Rate 88 ml/min
[2023-06-23 18:27] LABS: Anion Gap 13 mEq/L (7-15); Blood Urea Nitrogen* 12 mg/dL (7-30); Calcium* 9.6 mg/dL (8.4-10.6); Carbon Dioxide* 24 mmol/L (20-32); Glucose* 135 mg/dL (60-115); Magnesium* 2.2 mg/dL (1.5-2.6)
[2023-06-23 18:38] LABS: NT Pro B Type NatriureticPept* 186 pg/mL
[2023-06-23 18:39] LABS: Troponin I* < 0.01 ng/mL (0.01-0.04)
--- NOTE | 2023-06-23 19:03 | ED.NURSE ---
Report given to MARC Oshea.
[2023-06-23 19:09] LABS: Thyroid Stimulating Hormone* 0.721 uIU/mL (0.270-4.20)
== END 2023-06-23 19:35 | disposition home or self-care (01) ==
PROVIDERS: Emergency Provider Family Medicine; PCP Family Medicine
DX: I49.3 Ventricular premature depolarization (principal); I49.1 Atrial premature depolarization
CPT/HCPCS: 36415; 80048; 83735; 83880; 84443; 84484; 85025; 86140; 93005; 94761; 99284; J7030

== ENCOUNTER 2023-10-19 10:19 | Outpatient (CLI) | payer MEDICARE, BC, SELFPAY | END 2023-10-19 10:20 | disposition home or self-care (01) | LOC: AMB 10-21 09:53 | PROVIDERS: PCP Family Medicine; Visit Provider Emergency Medicine Emergency Medical Services | DX: R53.1 Weakness (principal); I48.91 Unspecified atrial fibrillation; I49.9 Cardiac arrhythmia, unspecified | CPT/HCPCS: A0425; A0427 ==

== ENCOUNTER 2024-04-22 14:31 | Emergency (ER) | payer MEDICARE, BC, SELFPAY ==
[2024-04-22] VITALS (18 sets, daily range): BP systolic 139–161; BP diastolic 76–92; PULSE 58–76; RESP 16–18; TEMP 36.6–37.1; O2SAT 92–99; BMI 30.3
--- NOTE | 2024-04-22 15:48 | ED.GENADULT ---
HPI - General Adult General Date Seen: 04/22/24 Chief complaint: Weakness Stated complaint: Elevated blood pressure Time Seen by Provider: 04/22/24 15:03 History of Present Illness HPI narrative: This is a very pleasant 78-year-old female presenting to the ER today with her for evaluation of dizziness. She has a complex past medical history notable for history of atrial fibrillation, status post ablation in November, with presumed sinus rhythm since then. She used to be on amiodaronebut has been off it since November. She is still on stroke prophylaxis with Eliquis. Javy acuna also has a history of urinary tract infections, high blood pressure, on metoprolol, Lasix. She also has a history of hypothyroidism. She had her checkup with her PCP last and was notified by phone today that her TSH was elevated and that her doctor wants her to increase her dose of levothyroxine from 50 mcg daily up to 75 mg daily. She has not done that yet because she just received a phone call today. She is here for feeling somewhat dizzy and unwell. Symptoms to her a reminiscent when she had AFib in the past. She is not feeling any palpitations. She action recalls that 3 nights ago on Sunday night she got up to go to the bathroom. She was feeling a bit unsteadily and wobbly than. She was not having any specific vertigo or spinning dizziness. She was able to walk but asked for her 's is assistance for reassurance and balance to get to the bathroom and back. The following day on Sunday morning she was feeling a bit better and then was back to normal by Sunday. The she has not otherwise been sick. No chest pain. No palpitations. No shortness of breath. No cough. No fever. Urination has been normal. No nausea vomiting. No black or bloody stools. This morning when she woke up she was feeling unsteady again. She does feel somewhat off balance. She is just feeling a little bit weak. No other new symptoms today. Still no chest pain, palpitations. No cough. No shortness of breath. Urination has been normal (other than urinating more because she took her Lasix this morning). She has not had any fever. She was concerned that she might be in AFib so came to the ER to get an EKG. She has a history of high blood pressure and monitors it closely. Blood pressure is 160/90 is a bit higher than normal for her but not completely outside previous ranges. She is not having any headache. She is not having any focal numbness or weakness in her arms or legs. She also notes that at her checkup last she had a lot of bilateral earwax and required extensive irrigation to get the ear wax out. She is not having any persistent ear pain, no headache. No bleeding or drainage from her ears. She had a bad cough 3 months ago in January which required a course of doxycycline and is now better. No recent cough. Related Data Home Medications ?Medication ?Instructions ?Recorded ?Confirmed albuterol sulfate 2.5 mg/3 mL 2.5 mg inhalation Q4H PRN 01/09/22 04/22/24 (0.083 %) solution for nebulization albuterol sulfate 90 mcg/actuation 1 puff inhalation Q4H PRN 01/09/22 04/22/24 aerosol inhaler amlodipine 5 mg tablet 5 mg PO QDAY 01/09/22 04/22/24 apixaban 5 mg tablet 5 mg PO BID 01/09/22 04/22/24 benzonatate 100 mg capsule 100 mg PO Q6H 01/09/22 04/22/24 codeine 10 mg-guaifenesin 100 mg/5 5 ml PO Q6H 01/09/22 04/22/24 mL oral liquid furosemide 40 mg tablet 40 mg PO Q OTHER DAY 01/09/22 04/22/24 levothyroxine 50 mcg capsule 50 mcg PO QDAY 01/09/22 04/22/24 lorazepam 0.5 mg tablet 0.5 mg PO QDAY PRN 01/09/22 04/22/24 losartan 100 mg tablet 100 mg PO DAILY 01/09/22 04/22/24 metronidazole 500 mg tablet 500 mg PO 01/09/22 02/20/24 nitroglycerin 0.4 mg sublingual 0.4 mg sublingual Q5M PRN 01/09/22 04/22/24 tablet omega-3 fatty acids 500 mg capsule 500 mg PO QDAY 01/09/22 04/22/24 rosuvastatin 20 mg tablet 20 mg PO QDAY 01/09/22 04/22/24 sertraline 100 mg tablet 100 mg PO DAILY 01/09/22 04/22/24 valacyclovir 500 mg tablet 500 mg PO BID 01/09/22 04/22/24 acetaminophen 500 mg tablet 1,000 mg PO Q6H PRN 09/25/22 04/22/24 (Tylenol Extra Strength) metoprolol succinate 100 mg 25 mg PO BID 03/07/23 04/22/24 tablet,extended release 24 hr levothyroxine 75 mcg tablet 75 mcg PO DAILY 04/22/24 04/22/24 Allergies Allergy/AdvReac Type Severity Reaction Status Date / Time penicillin V Allergy Mild Rash Verified 04/22/24 14:54 LOTION AND FRAGRANCES AdvReac Mild Uncoded 09/12/23 09:53 [facility] Medical History Anemia ?D64.9 - Anemia, unspecified (ICD-10) Arthritis ?M19.90 - Unspecified osteoarthritis, unspecified site (ICD-10) Gastric ulcer ?K25.9 - Gastric ulcer, unspecified as acute or chronic, without hemorrhage or perforation (ICD-10) Hyperlipidemia ?E78.5 - Hyperlipidemia, unspecified (ICD-10) Hypertension ?I10 - Essential (primary) hypertension (ICD-10) Heart attack ?I21.9 - Acute myocardial infarction, unspecified (ICD-10) Coronary artery disease ?I25.10 - Atherosclerotic heart disease of [place] coronary artery without angina pectoris (ICD-10) Hypothyroid ?E03.9 - Hypothyroidism, unspecified (ICD-10) Surgical History H/O heart artery stent ?Z95.5 - Presence of coronary angioplasty implant and graft (ICD-10) Status post breast reduction ?Z98.890 - Other specified postprocedural states (ICD-10) History of left knee replacement (06/10/13) ?Z96.652 - Presence of left artificial knee joint (ICD-10) History of breast biopsy ?Z98.890 - Other specified postprocedural states (ICD-10) H/O: hysterectomy ?Z90.710 - Acquired absence of both cervix and uterus (ICD-10) Family History Other High blood pressure Stomach cancer Social History Narrative: -Johnnie Smoking Status: Former smoker What tobacco products do you use: cigarettes Smoking quit date/years: >15 years ago Do you use any of these nicotine containing products: None Second hand tobacco smoke exposure: No How often do you have a drink containing alcohol: never AUDIT-C Alcohol total score: 0 Non-prescribed substance use: denies use Exam Narrative: Exam Narrative: Constitutional: Appears well-developed and well-nourished. Alert. Conversant. Non toxic. HENT: Head: Atraumatic. Nose: Nose normal. Mouth/Throat: Oral mucosa is clear and moist. no trismus. Pharynx normal. Tonsils symmetric. No tonsillar enlargement, erythema, or exudate. Eyes: Conjunctivae normal. EOM normal. Pupils equal, round, and reactive to light. No scleral icterus. Neck: Normal range of motion. Neck supple. No tracheal deviation present. No JVD Cardiovascular: Normal rate (66 on the monitor), regular rhythm. No gallop. No friction rub. No murmur heard. Symmetric radial and PT artery pulses Pulmonary/Chest: Effort normal. No stridor. No respiratory distress. No wheezes. No rales. No rhonchi . No tenderness. Abdominal: Soft. Bowel sounds normal. No distension. No mass. No tenderness. No rebound. No guarding. No CVA tenderness Musculoskeletal: RUE: Normal range of motion. No tenderness. No deformity LUE: Normal range of motion. No tenderness. No deformity RLE: Normal range of motion. No edema. No tenderness. No deformity LLE: Normal range of motion. No edema. No tenderness. No deformity Neurological: Alert and oriented to person, place, and time. Normal strength. CN II-VII intact. No sensory deficit. GCS eye subscore is 4. GCS verbal subscore is 5. GCS motor subscore is 6. Normal coordination Skin: She does have an erythematous rash on her cheeks and forehead which is chronic, per the patient. Skin is warm and dry. No rash noted. No pallor. Normal capillary refill. Psychiatric: Normal mood. Normal affect. Const: Vital Signs, click to edit/add: Vital Signs - 24 hr 04/22/24 14:45 Temperature 97.8 F Pulse Rate [Pulse Oximeter] 76 Respiratory Rate 16 Blood Pressure [Ri ght Upper Arm] 161/81 H Pulse Oximetry 97 Oxygen Delivery Me thod Room Air Course Vital Signs Vital signs: Initial Vital Signs Temperature 97.8 F 04/22/24 14:45 Temperature Source Temporal Artery Scan 04/22/24 14:45 Pulse Rate 76 04/22/24 14:45 Respiratory Rate 16 04/22/24 14:45 Blood Pressure 161/81 H 04/22/24 14:45 Blood Pressure Mean 107 H 04/22/24 14:45 Blood Pressure Position Sitting 04/22/24 14:45 Pulse Oximetry 97 04/22/24 14:45 Oxygen Delivery Method Room Air 04/22/24 14:45 Vital Signs Temperature 97.8 F 04/22/24 14:45 Pulse Rate 76 04/22/24 14:45 Respiratory Rate 16 04/22/24 14:45 Blood Pressure 161/81 H 04/22/24 14:45 Pulse Oximetry 97 04/22/24 14:45 Oxygen Delivery Method Room Air 04/22/24 14:45 Temperature 97.8 F 04/22/24 14:45 Pulse Rate 76 04/22/24 14:45 Respiratory Rate 16 04/22/24 14:45 Blood Pressure 161/81 H 04/22/24 14:45 Pulse Oximetry 97 04/22/24 14:45 Oxygen Delivery Method Room Air 04/22/24 14:45 Medications Administered Medications: Generic Name Dose Route Start Last Admin Trade Name Freq PRN Reason Stop Dose Admin Sodium Chloride 500 mls @ 500 mls/hr 04/22/24 15:56 04/22/24 16:12 0.9 % Sodium Chloride 500 Ml IV 04/22/24 16:55 500 mls/hr .Q1H ONE Administration Medical Decision Making MDM Narrative Medical decision making narrative: Very pleasant 78-year-old female presenting to the ER today for feeling somewhat dizzy and run down. She had an episode of dizziness 3 nights ago on Sunday night when she got up to go to the bathroom and then felt better on Sunday and almost back to normal yesterday. She has recurrent dizziness this morning. She was concerned because she has had similar dizziness in the past associated with AFib. She has already had an ablation, 5 months ago. Fortunately, EKG shows sinus rhythm. No ischemia on EKG. No WPW, Brugada syndrome, prolonged QT. I have ordered troponin to evaluate for possible atypical presentation of ACS. She is not having any chest pain. She is not short of breath. Pulse rate is normal. Oxygen normal. Overall would be very low risk for PE. She is not having any chest pain. She is already anticoagulated on Eliquis for stroke prophylaxis given her history of AFib. At this point I do not think she needs CT PA. She is not having any abdominal pain to suggest intra-abdominal causes of dizziness. We will obtain urinalysis to look for possible UTI but she is not having any dysuria. Will also evaluate for possible electrolyte disturbance, renal insufficiency, hypoglycemia, anemia, or other cause for her dizziness. Initial EKG shows sinus rhythm and no AFib. I have ordered laboratory workup and urinalysis for this patient. Signed over to my oncoming partner, Dr. López at 4:00 p.m.. Clinical impression 1. Dizziness Lab Data Labs: Lab Results 04/22/24 Range/Units 16:07 Lactate 1.9 (0.5-1.9) mmol/L ECG Data Attestation: I personally reviewed and interpreted this ECG as follows: Interpretation: Normal sinus rhythm Rate: 67 WI: 178 QRS axis: Normal axis ST segment/T wave: No ST segment elevation or depression QTc: 450 Discharge Plan Discharge Prescriptions: No Action apixaban 5 mg tablet 5 mg PO BID losartan 100 mg tablet 100 mg PO DAILY albuterol sulfate 90 mcg/actuation HFA aerosol inhaler 1 puff inhalation Q4H PRN codeine-guaifenesin 10-100 mg/5 mL liquid 5 ml PO Q6H benzonatate 100 mg capsule 100 mg PO Q6H metronidazole 500 mg tablet 500 mg PO sertraline 100 mg tablet 100 mg PO DAILY albuterol sulfate 2.5 mg /3 mL (0.083 %) solution for nebulization 2.5 mg inhalation Q4H PRN valacyclovir 500 mg tablet 500 mg PO BID rosuvastatin 20 mg tablet 20 mg PO QDAY omega-3 fatty acids 500 mg capsule 500 mg PO QDAY nitroglycerin 0.4 mg tablet, sublingual 0.4 mg sublingual Q5M PRN Rx Instructions: do not exceed 3 doses per episode lorazepam 0.5 mg tablet 0.5 mg PO QDAY PRN levothyroxine 50 mcg capsule 50 mcg PO QDAY furosemide 40 mg tablet 40 mg PO Q OTHER DAY amlodipine 5 mg tablet 5 mg PO QDAY metoprolol succinate 100 mg tablet extended release 24 hr 25 mg PO BID acetaminophen [Tylenol Extra Strength] 500 mg tablet 1,000 mg PO Q6H PRN levothyroxine 75 mcg tablet 75 mcg PO DAILY Follow Up/Referrals: Savana Booker MD [Primary Care Provider] -
[2024-04-22] MEDS: 0.9 % SODIUM CHLORIDE 500 ML 500 ML IV (16:12)
[2024-04-22 16:19] LABS: Basophils Percent Auto 0.5 % (0.0-3.0); Eosinophils Percent Auto 0.4 % (0.0-7.0); Hematocrit 43.7 % (33.0-51.0); Hemoglobin* 14.2 gm/dL (12.0-16.0); Immature Granulocytes Pct Auto 0.2 %; Lactate* 1.9 mmol/L (0.5-1.9); Lymphocytes Percent Auto 9.6 % (20-44); Mean Corpuscular HGB Conc 33 gm/dL (32-36); Mean Corpuscular Hemoglobin 31 pg (26-34); Mean Corpuscular Volume 96 fL (80-100); Monocytes Percent Auto 5.9 % (0.0-11.0); Neutrophils Percent Auto 83.4 % (42.0-72.0); Platelet Count* 458 K/uL (140-440); RDW Coefficient of Variation % 12.7 % (11.5-15.5); Red Blood Count 4.57 m/uL (4.00-5.20); White Blood Count* 12.08 K/uL (4.50-11.00)
[2024-04-22 16:23] LABS: Appearance Urine Clear (Clear); Bilirubin Urine Negative (Negative); Blood Urine Negative (Negative); Color Urine Yellow (Yellow); Glucose Urine Negative (Negative); Ketones Urine Negative (Negative); Leukocyte Esterase Urine Negative (Negative); Nitrite Urine Negative (Negative); Protein Urine Negative (Negative); Urobilinogen Urine 0.2 (0.2-1.0)
[2024-04-22 16:28] LABS: Slide Review Reflex No
[2024-04-22 16:38] LABS: RBC Urine 0-2 (0-2); WBC Urine 0-2 (0-5)
--- NOTE | 2024-04-22 16:56 | CRLHL7_ITS ---
For Patients: As a result of the Century Cures Act, medical imaging exams and procedure reports are released immediately into your electronic medical record. You may view this report before your referring provider. If you have questions, please contact your health care provider. INDICATION: Weakness, lightheadedness, leukocytosis TECHNIQUE: Chest radiograph 2 views COMPARISON: 11/03/2016 FINDINGS: The sensitivity and specificity of the exam are moderately limited by the patient`s body habitus. Mediastinum: The mediastinum is normal in appearance. The heart silhouette is normal in size and morphology. Lung: Bilateral pulmonary hyperinflation and lucency is noted. No sign of pleural effusion seen. No pneumothorax is identified. Bone and Soft tissue: Unremarkable for age. IMPRESSION: 1. Bilateral pulmonary hyperinflation and lucency is noted. This is suggestive of moderate pulmonary emphysema, if there is history of smoking. Dictated by Arnel Stevens MD @ 04/22/2024 5:20:37 PM Dictated by: Arnle Stevens MD @ 04/22/2024 17:20:41 (Electronically Signed)
[2024-04-22 18:04] LABS: Chloride* 100 mmol/L (96-114)
[2024-04-22 18:05] LABS: Potassium* 3.6 mmol/L (3.6-5.1); Sodium* 139 mmol/L (135-149)
[2024-04-22 18:08] LABS: Anion Gap 16 mEq/L (7-15); Blood Urea Nitrogen* 12 mg/dL (7-30); Calcium* 9.7 mg/dL (8.4-10.6); Carbon Dioxide* 23 mmol/L (20-32); Creatinine* 0.8 mg/dL (0.5-1.5); Est. Creatinine Clearance* 41.05; Estimated Glomerular Filt Rate 75 ml/min; Glucose* 122 mg/dL (60-115)
[2024-04-22 18:23] LABS: NT Pro B Type NatriureticPept* 159 pg/mL; Troponin I* < 0.01 ng/mL (0.01-0.04)
== END 2024-04-22 18:58 | disposition home or self-care (01) ==
PROVIDERS: Emergency Medicine; Emergency Provider Family Medicine; PCP Family Medicine
DX: R42 Dizziness and giddiness (principal)
CPT/HCPCS: 36415; 71046; 80048; 81001; 83605; 83880; 84484; 85025; 96360; 96361; 99283; 99284; J7030